=== PATIENT | female | born 1980 | race Two or more races ===

== ENCOUNTER 2022-05-23 23:37 | Emergency (ER) | payer SELFPAY ==
[~2022-05-23] VITALS: Ht 162.6 cm; Wt 76.0 kg
[2022-05-24] MEDS: IBUPROFEN 600MG TABLET PO ONE (03:15)
[2022-05-24 04:33] VITALS: BP 130/79
== END 2022-05-24 04:39 | disposition home or self-care (01) ==
LOC: ER 23:37
DX: S61.211A Laceration without foreign body of left index finger without damage to nail, initial encounter (principal); X58.XXXA Exposure to other specified factors, initial encounter; Y93.89 Activity, other specified; Y92.89 Other specified places as the place of occurrence of the external cause; Y99.8 Other external cause status; M79.645 Pain in left finger(s)
CPT/HCPCS: 11730; 99284; Z7610